=== PATIENT | female | born 1945 ===

== ENCOUNTER → 2021-11-22 | Outpatient (CLI) | payer OTHER ==
[~2021-11-22] VITALS: Ht 165.1 cm; Wt 59.0 kg
[~2021-11-22] MED LIST: ADULT ASPIRIN R81 MG PO; BENICAR40 MG PO; CALCIUM 500 +1 EACH PO; DAILY VITE1 EAC1 PO; FLAXSEED OIL1000 MG PO; NEURONTIN300 MG PO; NORVASC5 MG PO; OMEGA 3 1,0001 EACH PO; VITAMIN C100 MG PO; VITAMIN D325 MC3 PO; ZOCOR 10 MG TAB10 M1 PO
--- NOTE | ~2021-11-22 | HPC ---
[facility] [address] [place] [address] PAIN MANAGEMENT CONSULTATION Name: RYAN GRUBER Room #: REG CRUZITO MacyHollie.#: [id number] Admission: 11/22/21 Attend Phys: Fredi Boyd DO Discharge: Date of : 45 Report #: [id number] THIS REPORT FOR: cc: Linsey Parra MD,Fredi Greer MD, DO ~ cc: Linsey Parra MD DATE OF SERVICE: 11/22/2021 CHIEF COMPLAINT: Low back pain, right lower extremity pain with paresthesias. HISTORY OF PRESENT ILLNESS: As you know, the patient is a very pleasant 76-year-old female reporting longstanding history of low back pain and right lower extremity pain with paresthesias. The patient states she had pain on and off for years, but this was a spontaneous in its presentation and spontaneous in his resolution. She began to experience increasing and consistent back pain, right lower extremity pain, presented in August 2021. No inciting injury or trauma was reported. She trialled conservative medication with rest, relaxation and ania-iod-[id number] medications without benefit. She sought further evaluation through her primary care physician and advised that her symptoms were likely related to lumbar pathology. She underwent x-ray imaging of the lumbar spine, was sent for physical therapy. She spent 3 weeks in physical therapy with increasing pain. This was subsequently discontinued. The patient indicated today that she felt that some of her pain may be related to her alendronate prescription. She stopped the alendronate two doses ago and actually reports some pain improvement. Due to lack of improvement with conservative treatment options, the patient was then sent on to MRI of the lumbar spine, which showed central canal stenosis at the L3-L4 level that is moderate in nature with partial effacement of the CSF at the L3-L4 level and severe central canal stenosis at the L4-5 level. This then prompted a referral on to our clinic to discuss treatment options prior to looking toward surgical options. The patient reports today her pain is constant. She describes the pain as more of a cramping, aching, numbness, tingling, burning, electrical in sensation. Places current pain score 7/10. Daily average at 7/10. Worst pain has been 10/10. The patient states her pain is exacerbated with "getting up and walking as well as standing for any length of time." Pain is also present when lying down at night. She states that sitting in a chair tends to improve pain. She has been referred to our service to discuss interventional treatment options to address suspected lumbar radiculopathy. PAST MEDICAL HISTORY: 1. Hypertension. 2. Hyperlipidemia. 3. Diverticulosis. 4. Allergic rhinitis. [address] [address] PAIN MANAGEMENT CONSULTATION Name: RYAN GRUBER Room #: REG CRUZITO Childress#: [id number] Admission: 11/22/21 Attend Phys: Fredi Boyd DO Discharge: Date of : 45 Report #: [id number] 5. Osteoporosis. PAST SURGICAL HISTORY: 1. Breast surgery for benign lesion. 2. Tubal ligation. 3. Right tympanoplasty. SOCIAL HISTORY: The patient denies tobacco use. Denies IV or illicit drug use. Denies any chronic alcohol use. She is retired. Retired about 13 years ago. She is not receiving disability income or disability benefits. She is not in litigation in regards to pain. She is unaccompanied at today's visit. REVIEW OF SYSTEMS: Positive for wearing corrective eyewear, cataracts, hearing loss with tinnitus, nocturia, numbness and tingling sensations involving the right lower extremity. All other review of systems negative per 12-point review of systems other than those listed in history of present illness. Pain impact score 49/70, severe interference of daily activities secondary to pain. ALLERGIES: PENICILLIN. CURRENT MEDICATIONS: Olmesartan 40 mg once a day, simvastatin 10 mg per day, amlodipine 5 mg per day. IMAGING: MRI of the lumbar spine obtained 11/14/2021 shows, T12, L1, L1-L2 unremarkable. L2-L3 shows disk bulge osteophyte complex eccentric to the left with facet arthropathy and ligamentum flavum hypertrophy resulting in mild to moderate central canal stenosis and left neural foraminal narrowing. L3-L4 shows mild disk bulge in conjunction with facet arthrosis and ligamentum flavum hypertrophy causing partial effacement of the ventral thecal sac and CSF with moderate central canal stenosis. L4-L5 shows disk bulge in conjunction with facet arthropathy, ligament flavum hypertrophy on the right, small synovial cyst resulting in severe central canal stenosis with effacement of the CSF bilateral neural foraminal narrowing. L5-S1 disk osteophyte complex without central canal or neural foraminal stenosis. PQRS: The patient has known arthritic changes of the lumbar spine, bilateral hips and knees. No rheumatoid arthritis. She is placing current pain score 5/10. She is not a fall risk, has not had a fallen in last 3 months. She is not on blood thinners, but is treated for hypertension. She is on no opioids, has a low opioid addiction potential based on assessment tool. Pain impact is 49/70, severe interference of daily activities secondary to pain. PHYSICAL EXAMINATION: VITAL SIGNS: Blood pressure 139/79, pulse 72, respiratory rate 14 and [facility] [address] [place] [address] PAIN MANAGEMENT CONSULTATION Name: RYAN GRUBER Room #: REG CRUZITO [facility].#: [id number] Admission: 11/22/21 Attend Phys: Fredi Boyd DO Discharge: Date of : 45 Report #: [id number] unlabored. The patient is 97% on room air. Height 5 feet 5 inches tall, weight 130 pounds, BMI calculated 21.6. GENERAL: Well-developed, well-nourished, well-hydrated 76-year-old female appearing her stated age, no acute distress. Awake, alert and oriented x3. Pain is rated today at 5/10. HEENT: Normocephalic, atraumatic. Pupils equal, round and responsive to light. Speech is fluent. She is deemed a good historian. She is wearing a mask in compliance with COVID-19 regulations. LUNGS: Appear clear. She can complete sentences without problem and has normal respiratory pattern. EXTREMITIES: Show no clubbing, no cyanosis and no edema. MUSCULOSKELETAL: Lower extremity strength is symmetrical 5/5, intact to light touch from L1 through S2 dermatomes. Seated straight leg raising negative. Supine straight leg raising positive on the right. Fabere's test is negative. Modified Gaenslen's positive for axial low back pain. Ankle clonus negative. Babinski is negative. Deep tendon reflexes are symmetrical, but diminished bilaterally 1+/4 at patella and Achilles. Lumbar provocation testing is met with slight increase in axial back pain, does not appear to be any radicular component with this maneuver. The patient toe walks and heel walks with assistance. ASSESSMENT: 1. Symptomatic lumbar radiculopathy. 2. Severe central canal stenosis of the lumbar spine. 3. Displacement of lumbar intervertebral disk with radiculopathy. 4. Lumbosacral spondylosis with radiculopathy. 5. Facet arthropathy of lumbar spine. 6. Neural foraminal stenosis of lumbar spine. 7. Chronic intractable pain. PLAN: 1. Based on today's physical exam and history, the patient was provided, the description the patient uses in regard to pain as well as the distribution of symptoms, likely source of the patient's pain is lumbar radiculopathy. The patient and I discussed at length today the findings of her MRI and correlated those findings to her current physical exam. We spent over 20 minutes of time with the patient reviewing her MRI and then correlating those findings to the unilateral pain she is experiencing on the right at present. After that discussion, we then conversed about the options of treatment to address this issue. Following was discussed with the patient today. 1. We discussed physical therapy, stretching exercises and core strengthening as a treatment approach. It is noted that the patient stated her symptoms appeared to be progressively worsening with physical therapy, adjustments in the physical therapy could be beneficial if she wishes to reattempt that type of treatment option. We discussed medication management utilizing neuropathic [address] [address] PAIN MANAGEMENT CONSULTATION Name: RYAN GRUBER Room #: REG CRUZITO Childress#: [id number] Admission: 11/22/21 Attend Phys: Fredi Boyd DO Discharge: Date of : 45 Report #: [id number] medications such as amitriptyline, nortriptyline, Cymbalta, Lyrica or gabapentin. We discussed lumbar epidural injection under fluoroscopic guidance for which the patient was referred to our clinic. We also discussed with the patient's spinal cord stimulator therapy and ultimately surgical decompression. After reviewing risks and benefits of all proposed treatment options, the patient chose to begin with medication management and to look towards a possible lumbar epidural injection. 2. The patient was started on gabapentin 300 mg dose 1 tab p.o. at bedtime for 3 nights. If no improvement in symptoms, no side effects of sleepiness, disorientation, confusion, mental slowing or dysphoric effects, then increase to 2 tabs or 600 mg p.o. at bedtime, continue for 3 nights. If no improvement in symptoms and no side effects then increase to 900 mg p.o. at bedtime. If again no improvement in symptoms and no side effects, then begin titration in the morning every 3 days increasing by 1 tablet, but continuing the 900 mg of gabapentin at night. The patient will reach 900 mg b.i.d. if she is not experiencing side effects or improvement in symptoms. A prescription for 180 gabapentin 300 mg tablets were provided to the patient today. She was also given a titration schedule in written form to follow to dose appropriately. The patient was advised if she reaches efficacy, stabilize at that dose, no further increase in medication. If no improvement in symptoms or side effects, then reduce to the dose prior to the side effects and contact our clinic. 3. We will begin the authorization process for the patient to undergo lumbar epidural injection under fluoroscopic guidance. Authorization could take anywhere from 7-14 days, will begin that process immediately. Once this has been completed, we will have the patient return if medications are ineffective to undergo the first in a series of lumbar epidural injections. 4. We wish to thank the referring physician, Dr. Kent for the opportunity to see the patient in consultation. We will keep you apprised of her response to treatment as we address lumbar radicular symptoms secondary to severe central canal stenosis. Again, we wish to thank you for the opportunity to see the patient in consultation. By: Mena: 11/22/21 [id number] Fredi Boyd DO /nt
[2021-11-22 13:40] VITALS: BP 139/79
--- NOTE | 2021-11-22 14:08 | NUR ---
Pain Clinic Assessment: 1. History of Osteoarthritis: Not Applicable History of Rheumatoid Arthritis: Not Applicable 2. Height: 5 ft. 5 in. 165.1 cm. Weight: 130.0 lb. oz. 58.968 kg. Patient's BMI: 21.6 3. Vital Signs: BP: 139/79 Pulse: 72 Resp: 14 Temp: 02 Sat: 97 ECG Mon: 4. Pain Intensity: 5 5. Fall Risk: Dizziness: N Needs help standing or walking: N Fallen in the last 3 months: N Fall risk comments: 6. Patient on Blood Thinner: None 7. History of Hypertension: Y 8. Opioid Therapy greater than 6 weeks: Opiate Contract Signed: 9. Risk Assessment Tool Provided: 0 LOW RISK 10. Functional Assessment Tool: 49/70 11. Recreational Drug Use: Never Drug Type: Tobacco Use: Never Smoker Tobacco Type: Amount or Packs/day: How Many Years: Alcohol Use: No Frequency: Quant:
== END ==
LOC: PAIN 12:19
PROVIDERS: ATTEND Anesthesiology Pain Medicine
DX: M47.27 Other spondylosis with radiculopathy, lumbosacral region (principal); M54.16 Radiculopathy, lumbar region; M48.061 Spinal stenosis, lumbar region without neurogenic claudication; G89.29 Other chronic pain; Z88.8 Allergy status to other drugs, medicaments and biological substances; Z88.0 Allergy status to penicillin